=== PATIENT | male | born 1950 | race Caucasian/White ===

== ENCOUNTER 2019-10-26 08:04 | Outpatient (CLI) | payer BC ==
[2019-10-26 08:40] LABS: Estimated GFR-MDRD - POC Greater than 90
--- NOTE | 2019-10-26 09:57 | CT ---
CT ABDOMEN AND PELVIS WITH IV AND ENTERIC CONTRAST: INDICATIONS: History of chronic diarrhea. COMPARISON: None. FINDINGS: ABDOMEN: There is a calcified granuloma in the right lower lobe. There is a small hiatal hernia. There is mild fatty infiltration of the liver. There is cholelithiasis. The pancreas, adrenal glands and spleen appear within normal limits. There is bilateral nephrolithias is. There is a 2 mm stone within the right mid kidney. There is a 5 mm stone in the inferior pole lef t kidney. There is a 7 mm stone in the left mid kidney. No hydronephrosis is evident. No solid renal lesion is noted. There are mild scattered vascular calcifications involving the abdominal and pelvic vasculature. PELVIS: There are scattered diverticula involving the colon without definite evidence of active diver ticulitis. The small bowel is of normal caliber. The appendix is not definitely seen. No free fluid i s evident. There is scattered degenerative and osteoarthritic change. No definite acute osseous abnormality is e vident. IMPRESSION: 1. Colonic diverticulosis without evidence of active diverticulitis. 2. Fatty liver. 3. Cholelithiasis. 4. Bilateral nephrolithiasis. POS: TPC
== END 2019-10-26 08:05 | disposition home or self-care (01) ==
LOC: SCSCT 08:04
PROVIDERS: ATTEND Internal Medicine Gastroenterology
DX: K52.9 Noninfective gastroenteritis and colitis, unspecified (principal); K57.30 Diverticulosis of large intestine without perforation or abscess without bleeding; N20.0 Calculus of kidney; K80.20 Calculus of gallbladder without cholecystitis without obstruction; K76.0 Fatty (change of) liver, not elsewhere classified
CPT/HCPCS: 74177; 82565

== ENCOUNTER 2020-08-30 07:33 | Day surgery (SDC) | payer BC ==
[2020-08-29 09:44] VITALS: BMI 26.4
[2020-08-30] MEDS ORDERED: Acetaminophen 500 MG TAB ONE (08:24)
[2020-08-30] MEDS ORDERED: Lidocaine 1% w/Epinephrine 1:100K 20 ML VIAL ONE (09:23)
[2020-08-30] MEDS ORDERED: Bupivacaine 0.25% HCL 30 ML VIAL ONE (09:23)
[2020-08-30] MEDS ORDERED: SUGAMMADEX SODIUM 200 MG/2 ML VIAL ONE (10:36)
[2020-08-30] MEDS ORDERED: Fentanyl 100 MCG/2 ML VIAL ONE ×2 (10:59→11:08)
[2020-08-30] MEDS ORDERED: Ondansetron PF 4 MG/2 ML Vial ONE ×2 (11:08→12:14)
[2020-08-30] MEDS ORDERED: Meperidine HCl/PF 25 MG/ML VIAL ONE (11:38)
[2020-08-30] MEDS ORDERED: Rocuronium Bromide 10 MG/ML (10ML VIAL) ONE (12:14)
[2020-08-30] MEDS ORDERED: PROPOFOL 200 MG/20 ML VIAL ONE (12:14)
[2020-08-30] MEDS ORDERED: Dexamethasone 20 MG/5 ML VIAL ONE (12:14)
[2020-08-30] MEDS ORDERED: Lidocaine 1% PF 5 ML VIAL ONE (12:14)
[2020-08-30] MEDS ORDERED: HYDROcodone/Acetaminophen 5/325 mg Tablet ONE (12:36)
--- NOTE | 2020-08-30 16:59 | PDOC.OP ---
Operative Note - Operative Note Operative Note: DATE OF PROCEDURE: 08/30/2020 PROCEDURES: Laparoscopic cholecystectomy. SURGEON: Eduardo Mandel M.D. PREOPERATIVE DIAGNOSIS: Symptomatic cholelithiasis POSTOPERATIVE DIAGNOSIS: Symptomatic cholelithiasis FINDINGS: Chronically inflamed gallbladder with multiple stones. HISTORY: Patient with symptoms of biliary colic and gallstones noted on CT. Laparoscopic cholecystectomy was recommended for symptomatic relief. Preoperative LFTs were normal and bile duct was normal caliber on preoperative imaging. PROCEDURE: After informed consent was obtained and appropriate preoperative antibiotics were administered, the patient was taken to the operating room and placed in the supine position and general endotracheal anesthesia was administered. The stomach was decompressed with an OG tube and the abdomen was prepped and draped in standard sterile fashion. Local anesthesia was infused to the skin and subcutaneous tissues at the umbilical level. A transverse skin incision was made. The fascia was elevated and a Veress needle was placed into the abdominal cavity without difficulty. Opening pressure was less than 5 and carbon dioxide gas easily insufflated to an intra-abdominal pressure of 15, which the patient tolerated well. The Veress needle was withdrawn and a [place] port advanced under direct vision. The abdominal cavity was carefully examined. There was no evidence of Veress needle or of trocar injury. Local anesthesia was infused to the skin and subcutaneous tissues at the epigastric, right upper quadrant, and right lateral abdominal sites and trocars were placed under direct vision of the laparoscope. The gallbladder appeared somewhat white walled consistent with chronic inflammation. The fundus of the gallbladder was grasped and retracted superiorly. The infundibulum was grasped and retracted laterally. The serosa was stripped inferiorly at the level of the neck of the gallbladder exposing the cystic duct and artery which were traced clearly to their insertion in the gallbladder. Critical view of safety was obtained and the cystic duct and artery were clipped and divided between clips. The gallbladder was then dissected free of the gallbladder bed using hook electrocautery. Prior to complete removal of the gallbladder from the gallbladder bed, the area of the cystic duct and artery stumps was examined. The clips were in good position completely across these structures and there was no bleeding and no leakage of bile. The gallbladder was then placed into an EndoCatch bag and drawn out through the epigastric incision. The epigastric trocar was replaced and the operative site easily irrigated to clear. There was no significant bleeding or spillage of bile. The epigastric trocar was removed and the fascia closed under direct laparoscopic vision with a 0 Vicryl suture on a GraNee needle in a [id number] manner with excellent technical result. The right upper quadrant and right lateral abdominal trocars were removed and hemostasis verified. Carbon dioxide gas was allowed to desufflate through the umbilical trocar which was then removed. Due to the patient's thin body habitus the fascia at the umbilical incision was visible and this was closed under direct vision with a 0 Vicryl suture. The skin incisions were closed with 4-0 subcuticular Monocryl sutures and Dermabond dressings were placed. The patient was extubated and taken to the recovery room in good condition. There were no complications. ESTIMATED BLOOD LOSS: Minimal. SPECIMEN : Gallbladder and contents.
== END 2020-08-30 13:20 | disposition home or self-care (01) ==
LOC: SDC 07:33
PROVIDERS: ATTEND Surgery
PROC: 0FT44ZZ Resection of Gallbladder, Percutaneous Endoscopic Approach (ICD-10-PCS; principal; 2020-08-30)
DX: K80.10 Calculus of gallbladder with chronic cholecystitis without obstruction (principal); I48.0 Paroxysmal atrial fibrillation; E78.5 Hyperlipidemia, unspecified; K52.9 Noninfective gastroenteritis and colitis, unspecified; Z79.82 Long term (current) use of aspirin; Z79.899 Other long term (current) drug therapy; Z88.5 Allergy status to narcotic agent; Z91.040 Latex allergy status
CPT/HCPCS: 88304; J0690; J1100; J2175; J2405; J2704; J3010; S0020

== ENCOUNTER 2020-09-23 08:54 | Outpatient (CLI) | payer BC ==
--- NOTE | 2020-09-23 13:53 | NM ---
Radionucleotide parathyroid scan with SPECT imaging HISTORY: Hyperparathyroidism. COMPARISON: CT neck 08/23/2020. FINDINGS: Planar images show physiologic uptake of radiotracer within the salivary glands and thyroid gland. SPECT images and delayed planar imaging shows appropriate washout. No residual focal abnormalities ar e evident within the neck or upper mediastinum. IMPRESSION : No scintigraphic evidence of parathyroid adenoma.
== END 2020-09-23 08:55 | disposition home or self-care (01) ==
LOC: NM 08:54
PROVIDERS: ATTEND Specialist
DX: E21.3 Hyperparathyroidism, unspecified (principal)
CPT/HCPCS: 78072; A9500

== ENCOUNTER 2020-11-04 10:20 | Outpatient (CLI) | payer BC ==
--- NOTE | 2020-11-04 11:38 | CT ---
CT Stone Protocol 11/04/2020 12:00 AM HISTORY: Left flank pain started 2 weeks ago. Renal calculus. COMPARISON: 10/26/2019 Technique: Multiple contiguous axial CT images are obtained through the abdomen and pelvis without IV contrast. Coronal reformats are provided. FINDINGS: This examination is limited for the evaluation of solid organs and vascular structures due to the lac k of intravenous contrast. Lower Chest: Tiny pleural-based nodular density left lung base measuring 5 mm with stable tiny nodula r density which may represent tiny calcified granuloma in the right lower lobe. These nodules are stable compared to recent study as well as a study in 2012. Liver: Grossly normal non-enhanced CT appearance. Gallbladder: Surgically absent Pancreas: Grossly normal nonenhanced CT appearance. Spleen: Grossly normal nonenhanced CT appearance. Adrenals: Grossly normal nonenhanced CT appearance. Kidneys and ureters: Again noted are nonobstructing left renal calculi largest measuring 10 mm and 6 mm respectively. However, there is now a 7 mm calculus in the proximal left ureter with minimal calyceal dilatation. No right renal or ureteral calculus is seen. Urinary bladder: Urinary bladder has a normal CT appearance. Reproductive Organs: Location of the prostate gland. Lymph Nodes: No enlarged lymph nodes. Bowel: Evidence of colonic diverticulosis. Loops of small bowel are normal in caliber. Appendix: Not visualized, there are no secondary signs seen to suggest appendicitis. Peritoneum: No free fluid, free air, or fluid collection. Retroperitoneum: within normal limits. Vessels: Vascular calcifications are present in the abdominal aorta and iliac arteries.. Abdominal Wall: within normal limits. Bones: Degenerative changes are seen in the spine. There is trace grade 1 anterolisthesis of L3 on L4 likely related to the facet degenerative changes. IMPRESSION: 1. Proximal left ureteral calculus measuring 7 mm. Minimal calyceal dilatation is present on the left . 2. Nonobstructing left renal calculi. 3. No right renal or ureteral calculus is seen. 4. Colonic diverticulosis. 5. Postcholecystectomy changes.
== END 2020-11-04 10:21 | disposition home or self-care (01) ==
LOC: BICCT 10:20
PROVIDERS: ATTEND Urology
DX: N20.2 Calculus of kidney with calculus of ureter (principal); K57.30 Diverticulosis of large intestine without perforation or abscess without bleeding; N28.89 Other specified disorders of kidney and ureter; Z90.49 Acquired absence of other specified parts of digestive tract
CPT/HCPCS: 74176

== ENCOUNTER 2020-11-04 13:03 | Outpatient (CLI) | payer BC ==
[2020-11-04 15:05] LABS: Hemoglobin 15.3 g/dL (14.0-18.0); Mean Corpuscular Hemoglobin 31.5 PG (27.0-33.0); Mean Corpuscular Volume 95.3 fl (80.0-100.0); Mean Platelet Volume 11.5 fl (7.4-10.4); Red Blood Cell (RBC) Count 4.86 10x6/uL (4.40-5.80); White Blood Cell (WBC) Count 5.7 10x3/uL (4.5-11.0)
[2020-11-04 15:06] LABS: Platelet Count 144 10x3/uL (130-400)
[2020-11-04 15:17] LABS: INR-International Normal Ratio 1.1; PTT 28.2 sec (22.0-33.0); Prothrombin Time 11.4 sec (9.5-12.1)
[2020-11-04 15:28] LABS: Anion Gap 14 mmol/L (10-20); BUN (Urea Nitrogen) 19 mg/dL (8.4-25.7); Calc. Creatinine Clearance 0 mL/min (70-130); Carbon Dioxide 28 mmol/L (23-31); Chloride 105 mmol/L (98-107); Glucose 79 mg/dL (80-115); Potassium 4.7 mmol/L (3.5-5.1); Sodium 142 mmol/L (136-145)
[2020-11-05 02:53] LABS: SARS-CoV-2 PCR by NAA Not Detected (NotDetected)
--- NOTE | 2020-11-05 07:16 | EKG ---
Test Reason : PREOP Blood Pressure : / mmHG Vent. Rate : 072 BPM Atrial Rate : 072 BPM P-R Int : 150 ms QRS Dur : 110 ms QT Int : 390 ms P-R-T Axes : 075 090 075 degrees QTc Int : 427 ms Normal sinus rhythm Rightward axis Borderline ECG Confirmed by DR. Tyler SANTIAGO ([id number]) on 11/05/2020 7:16:32 AM Referred By: JACQUES Confirmed By:DR. Tyler SANTIAGO
== END 2020-11-04 13:04 | disposition home or self-care (01) ==
LOC: LABBT 13:03
PROVIDERS: ATTEND Urology
DX: Z01.818 Encounter for other preprocedural examination (principal); Z20.822 Contact with and (suspected) exposure to COVID-19; Z12.5 Encounter for screening for malignant neoplasm of prostate; N20.0 Calculus of kidney; R35.0 Frequency of micturition; K80.20 Calculus of gallbladder without cholecystitis without obstruction; K57.30 Diverticulosis of large intestine without perforation or abscess without bleeding; N28.89 Other specified disorders of kidney and ureter; Z90.49 Acquired absence of other specified parts of digestive tract
CPT/HCPCS: 74176; 80048; 81001; 85027; 85610; 85730; 87086; 87635; 93005; 93010; U0003; U0005

== ENCOUNTER 2020-11-06 08:31 | Day surgery (SDC) | payer BC ==
[2020-11-05 09:36] VITALS: BMI 26.4
[2020-11-06] MEDS ORDERED: Levofloxacin 500 mg/D5W 100 ml Premix Bag ONE (08:42)
[2020-11-06] MEDS ORDERED: ePHEDrine 50 MG/ML VIAL ONE (08:54)
[2020-11-06] MEDS ORDERED: Ondansetron PF 4 MG/2 ML Vial ONE (08:54)
[2020-11-06] MEDS ORDERED: Dexamethasone 20 MG/5 ML VIAL ONE (08:54)
[2020-11-06] MEDS ORDERED: PROPOFOL 200 MG/20 ML VIAL ONE (08:54)
[2020-11-06] MEDS ORDERED: Rocuronium Bromide 10 MG/ML (10ML VIAL) ONE (08:54)
[2020-11-06] MEDS ORDERED: PHENYLEPHRINE-NS 100 MCG/ML 10 ML SYRINGE ONE (08:54)
[2020-11-06] MEDS ORDERED: Lidocaine 1% PF 5 ML VIAL ONE (08:54)
--- NOTE | 2020-11-06 09:14 | RAD ---
Exam: 1 view abdomen HISTORY: Left renal calculus Correlation: Stone CT 11/04/2020 FINDINGS: Nonspecific bowel gas pattern. Cholecystectomy clips are identified No acute osseous abnormalities 0.5 cm calcification projecting over the left renal silhouette and a 0.9 cm calcification along the c ourse of the left ureter at approximately the L3-L4 disc space level. IMPRESSION: 1. Left renal and left ureteral calculi.
[2020-11-06] MEDS ORDERED: Iothalamate Meglumine 60% 50 ML VIAL FS ONE (11:49)
[2020-11-06] MEDS ORDERED: Fentanyl 100 MCG/2 ML VIAL ONE (11:49)
[2020-11-06] MEDS ORDERED: SUGAMMADEX SODIUM 200 MG/2 ML VIAL ONE (14:06)
[2020-11-06] MEDS ORDERED: Phenazopyridine HCl 100 MG TAB ONE (14:24)
--- NOTE | 2020-11-06 14:27 | RAD ---
EXAM: Retrograde IVP HISTORY: Left ureteral stent placement for kidney stones COMPARISON: CT abdomen/pelvis 11/04/2020 FINDINGS/IMPRESSION: Limited intraoperative fluoroscopic views of the retrograde IVP were submitted f or interpretation. There may be a calcific addition visualized on the first image in the region of the left ureter adjacent to the L3 vertebral body. A wire and lithotripsy instruments were eventually placed in the left renal collecting system. A left-sided ureteral stent is seen which appears in good position. The previously seen calcification is no longer present at the completion of the proced ure.
--- NOTE | 2020-11-07 11:45 | OP ---
DATE OF PROCEDURE: 11/06/2020 PREOPERATIVE DIAGNOSES: 1. A 70-year-old male with history of recurrent urolithiasis: Left hydronephrosis due to proximal left 8 to 10 mm L4 ureteral calculi(N20.1) , left lower pole 5 mm renal calculi, left mid pole 10 to 11 mm calculi(N20.0) 2. Right kidney unremarkable. POSTOPERATIVE DIAGNOSES: 1. A 70-year-old male with history of recurrent urolithiasis: Left hydronephrosis due to proximal left 8 to 10 mm L4 ureteral calculi, left lower pole 5 mm renal calculi, left mid pole 10 to 11 mm calculi. 2. Right kidney unremarkable. PROCEDURES PERFORMED: Cystoscopy; left retrograde pyelogram; left ureteroscopy; pyeloscopy; dilation of distal ureter; rigid diagnostic ureteroscopy; flexible ureteroscopy; laser lithotripsy of large dense ureteral calculi measuring about 1 cm(MOdifer XS) on endoscopy; laser lithotripsy of multiple left renal calculi(MOdifier XS) , lower pole, and mid pole, dimensions as above; 6 x 28 double-J ureteral stent with distal tail in situ; balloon dilation of distal ureter. ANESTHESIA: General. COMPLICATIONS: None apparent. DISPOSITION: To recovery room in stable condition. SPECIMEN: Stone for chemical analysis. INTRAOPERATIVE FINDINGS: 1. Sbsq-jv-aoidlhho bilobar hyperplasia with high median bar, UOs about 2 mm proximal to the bladder neck. 2. UOs in normal orthotopic position. 3. Large left ureteral calculi at the level of L3-4 measuring about 10 mm on ureteroscopy. 4. Pyeloscopy demonstrating left lower pole stone about 6 mm, large left mid to lower pole renal calculi about 10 to 12 mm dense in nature. Modifier 22. INDICATIONS FOR THE PROCEDURE: Mr. Sherman is a 70-year-old male with history of recurrent kidney stone. I had seen him initially as a new patient on July 2020. He was advised regarding stone metabolic panel and followup. Work-in appointment provided as he has left flank pain. CT demonstrating left proximal ureteral calculi with dilation of the collecting system and multiple left renal calculi as above, large in size in the mid pole. He desired to proceed with ureteroscopy, laser lithotripsy. Risks and complications of procedure have been discussed with the patient in detail including, but not limited to, bleeding, pain, infection, injury to adjacent organs, urosepsis, rhfsyvby-[id number]-oqsbxb injury, possible secondary procedure as he presents with dense multiple ureteral renal calculi. All questions answered to his satisfaction. He desired to proceed. DESCRIPTION OF PROCEDURE: After an informed consent was signed, the patient was taken to the operating room, placed in a dorsal lithotomy position with the genital area prepped and draped in the usual surgical sterile fashion. A 21-Afghan cystoscope was utilized for cystoscopy. The anterior urethra was within normal limits. Prostatic urethra demonstrated qgvz-ak-garbpsuh bilobar hyperplasia with high median bar. There was no intravesical median lobe. UOs were about 2 mm proximal to the bladder neck. He does have a component of high median bar. At this time, the left ureter was intubated and a retrograde pyelogram gently performed. The stone was seen in the level of L4 and a 0.035 Sensor wire was placed into the left upper pole without difficulty. At this time, we gently dilated the distal intramural ureter with a [employer] 4 cm 12-Afghan balloon. After subsequent dilatation, we were able to pass the rigid ureteroscope to the level of the mid ureter, however, I could not go pass beyond the bifurcation of the iliacs due to the angle. Therefore, we transitioned to a flexible ureteroscope. A 10-Afghan dual-lumen access sheath was placed over the wire and a second safety wire 0.035 Super Stiff placed without difficulty. A 12 x 14-Afghan navigator was then placed to the level of the stone and just distal to the stone seen on fluoroscopy. Using a flexible ureteroscope, and 200 micron laser fiber a flat tip, we laser lithotripsied the stone. The stone was very challenging to treat as it was dense in nature and somewhat embedded in the mucosa. Laser lithotripsy fragmentation was performed. Then, we retrieved all stone fragments with the basket atraumatically. With the ureters cleared of stone debris, we then proceeded to pass the scope to the level of the renal pelvis. He had a large left mid to lower pole stone, and a left lower pole stone. Both stones were very difficult to engage due to the infundibular angle. The left lower pole stone was basket extracted, however, this was extremely difficult due to the angle. However, we were able to retrieve it and place into the mid pole for better angulation of the laser lithotripsy. We also saw the left mid to lower pole stone. This was very large in nature consistent with the CT. The angle was suboptimal for laser lithotripsy due to acute anterior angle of the stone. Therefore, we used a Zero Tip Nitinol basket to maneuver the stone into the renal pelvis and into the mid to upper pole. With both stones in the mid pole, we laser lithotripsied the stone into multiple tiny fragments. We basket extracted those debris that were amendable and what remained were tiny stone debris punctate in nature, which he will most likely pass. The stone was difficult and challenging to treat too because of the angle and density of the stone. The ureter was surveyed, which demonstrated no evidence of ureteral mucosa trauma of concern or stone nidus. A 6 x 28 double-J ureteral stent was passed over the guidewire with distal tail in situ. Bladder was completely emptied and he tolerated the procedure well. Given the multiple stones treated today, we will leave the stent in for 2 weeks, we will have a followup KUB one day prior. If no obvious stone debris of concern, we will remove his stent under local in my office. Job ID: [id number]
[2020-11-13 17:12] LABS: CA Oxalate Dihydrate 20 % (.); CA Oxalate Monohydrate 80 % (.); Color Brown (.); Stone Weight 168 mg (.)
== END 2020-11-06 16:05 | disposition home or self-care (01) ==
LOC: SDC 08:31
PROVIDERS: ATTEND Urology
PROC: 0TC78ZZ Extirpation of Matter from Left Ureter, Via Natural or Artificial Opening Endoscopic (ICD-10-PCS; principal; 2020-11-06)
PROC: 0TC48ZZ Extirpation of Matter from Left Kidney Pelvis, Via Natural or Artificial Opening Endoscopic (ICD-10-PCS; principal; 2020-11-06)
PROC: 0T778DZ Dilation of Left Ureter with Intraluminal Device, Via Natural or Artificial Opening Endoscopic (ICD-10-PCS; principal; 2020-11-06)
DX: N13.2 Hydronephrosis with renal and ureteral calculous obstruction (principal); N40.1 Benign prostatic hyperplasia with lower urinary tract symptoms; R35.0 Frequency of micturition; I48.0 Paroxysmal atrial fibrillation; K80.20 Calculus of gallbladder without cholecystitis without obstruction; E78.5 Hyperlipidemia, unspecified; Z79.82 Long term (current) use of aspirin; Z79.899 Other long term (current) drug therapy; Z88.5 Allergy status to narcotic agent; Z91.040 Latex allergy status
CPT/HCPCS: 74018; 74420; 82365; 88300; J1100; J1956; J2405; J2704; J3010; J3490

== ENCOUNTER 2020-11-20 08:57 | Outpatient (CLI) | payer BC ==
--- NOTE | 2020-11-20 10:59 | RAD ---
SUPINE ABDOMEN: HISTORY: Ureteral calculus left. COMPARISON: 11/06/2020. FINDINGS: A left ureteral stent is now in place. Calcific density seen to the left of the L3 vertebra on the p rior study is not identified on today's exam. Bowel gas pattern unremarkable. Cholecystectomy clips again noted. IMPRESSION: Left ureteral stent has been placed. No evidence of left ureteral calculus identified. POS: OFF
== END 2020-11-20 08:58 | disposition home or self-care (01) ==
LOC: BICRAD 08:57
PROVIDERS: ATTEND Urology
DX: N20.1 Calculus of ureter (principal); Z96.0 Presence of urogenital implants
CPT/HCPCS: 74018

== ENCOUNTER 2021-02-17 10:12 | Outpatient (CLI) | payer BC | END 2021-02-17 10:13 | disposition home or self-care (01) | LOC: SCSRAD 10:12 | PROVIDERS: ATTEND Urology | DX: N20.0 Calculus of kidney (principal); Z96.0 Presence of urogenital implants | CPT/HCPCS: 74018 ==

== ENCOUNTER 2023-11-02 15:19 | Outpatient (CLI) | payer MEDICARE, BC | END 2023-11-02 15:20 | disposition home or self-care (01) | LOC: BICRAD 15:19 | PROVIDERS: ATTEND Urology | DX: Z12.5 Encounter for screening for malignant neoplasm of prostate (principal); N40.1 Benign prostatic hyperplasia with lower urinary tract symptoms; N20.0 Calculus of kidney; R35.0 Frequency of micturition; R79.89 Other specified abnormal findings of blood chemistry | CPT/HCPCS: 74018; 80048; 81001; 87086; G0103; 36415 ==

== ENCOUNTER 2025-06-14 13:28 | Outpatient (CLI) | payer MEDICARE, BC ==
[2025-06-14 14:40] LABS: #Basophils Less than 0.03 10x3/uL (0.0-0.2); #Eosinophils 0.10 10x3/uL (0.0-0.7); #Monocytes 0.48 10x3/uL (0.11-0.59); #Neutrophils 3.78 10x3/uL (1.40-6.50); %Basophils 0.4 % (0.0-1.0); %Eosinophils 1.8 % (0.0-10.0); %Lymphocytes 22.9 % (21.0-51.0); %Monocytes 8.4 % (0.0-10.0); %Neutrophils 66.1 % (42.0-75.0); Hematocrit 47.8 % (42.0-52.0); Hemoglobin 15.7 g/dL (14.0-18.0); Mean Corpuscular Hemoglobin 31.0 pg (27.0-31.0); Mean Corpuscular Volume 94.3 fL (78.0-98.0); Platelet Count 143 10x3/uL (130-400); Red Blood Cell (RBC) Count 5.07 mill/uL (4.70-6.10); White Blood Cell (WBC) Count 5.71 10x3/uL (4.8-10.8)
[2025-06-14 14:46] LABS: Bacteria/HPF None Seen HPF (None Seen); Glucose, Urine (Dipstick) Normal (Negative); Leukocyte Negative Leu/uL (Negative); Protein, Urine (Dipstick) Negative (Neg-Trace); Specific Gravity, Urine 1.020 (1.002-1.036); WBC/HPF 0-3 HPF (0-3)
[2025-06-14 14:52] LABS: Anion Gap 14 mmol/L (10-20); BUN (Urea Nitrogen) 23 mg/dL (8.4-25.7); Calc. Creatinine Clearance 0 mL/min (70-130); Calcium 10.2 mg/dL (7.8-10.44); Carbon Dioxide 24 mmol/L (23-31); Chloride 107 mmol/L (98-107); Glucose 85 mg/dL (83-110); Potassium 4.1 mmol/L (3.5-5.1); Sodium 141 mmol/L (136-145)
[2025-06-14 14:59] LABS: INR-International Normal Ratio 1.1; PTT 33.3 sec (22.9-36.1); Prothrombin Time 13.8 sec (12.0-14.7)
== END 2025-06-14 13:29 | disposition home or self-care (01) ==
LOC: LABBT 13:28
PROVIDERS: ATTEND Urology
DX: Z01.818 Encounter for other preprocedural examination (principal); N20.0 Calculus of kidney
CPT/HCPCS: 80048; 81001; 85025; 85610; 85730; 87086; 93005; 93010

== ENCOUNTER 2025-06-20 07:30 | Day surgery (SDC) | payer MEDICARE, BC ==
[2025-06-14 13:49] VITALS: BMI 25.0
[2025-06-20] MEDS ORDERED: LevoFLOXacin D5W 500 mg (100 mL) BAG ONE (11:31)
[2025-06-20] MEDS ORDERED: Rocuronium Bromide 10 MG/ML (10ML VIAL) ONE (11:44)
[2025-06-20] MEDS ORDERED: PROPOFOL 20 ML ONE (11:44)
[2025-06-20] MEDS ORDERED: fentaNYL PF 100 MCG/2 ML SYRINGE ONE (11:44)
[2025-06-20] MEDS ORDERED: Ondansetron PF 4 MG/2 ML Vial ONE (12:10)
[2025-06-20] MEDS ORDERED: PHENYLEPHRINE-NS 100 MCG/ML 10 ML SYRINGE ONE (12:27)
[2025-06-20] MEDS ORDERED: SUGAMMADEX SODIUM 200 MG/2 ML VIAL ONE (12:57)
[2025-06-20] MEDS ORDERED: hydrALAZINE 20 MG/ML VIAL ONE (13:47)
== END 2025-06-20 15:32 | disposition home or self-care (01) ==
LOC: SDC 07:30
PROVIDERS: ATTEND Urology
PROC: 0TC18ZZ Extirpation of Matter from Left Kidney, Via Natural or Artificial Opening Endoscopic (ICD-10-PCS; principal; 2025-06-20)
PROC: 0T778DZ Dilation of Left Ureter with Intraluminal Device, Via Natural or Artificial Opening Endoscopic (ICD-10-PCS; 2025-06-20)
DX: N13.2 Hydronephrosis with renal and ureteral calculous obstruction (principal); N40.0 Benign prostatic hyperplasia without lower urinary tract symptoms; Z90.89 Acquired absence of other organs; Z90.49 Acquired absence of other specified parts of digestive tract; Z91.040 Latex allergy status; Z88.5 Allergy status to narcotic agent
CPT/HCPCS: 52332; C9761; 74018; 74420; 82365; 88300; C1747; C1758; C1769; C2617; J0360; J1100; J1956; J2405; J2704; Q9967